=== PATIENT | female | born 1995 | race Two or more races ===

== ENCOUNTER → 2024-03-09 | Outpatient (CLI) | payer MEDICAID, SELFPAY ==
--- NOTE | 2024-03-09 15:30 | XR_ITS ---
Examination: Complete OB ultrasound, less than 14 weeks, transabdominal Date and time of exam: March 09, 2024 1600 hours INDICATIONS: Diagnosis amenorrhea Technique: Obstetrical ultrasound images less than 14 weeks performed via transabdominal imaging Findings: A normal shaped single intrauterine gestation is present in the uterus. pole 2.1 cm corresponds to 8 weeks 5 day gestational age Cardiac motion 167 BPM Ultrasonographic survey of visible and placental structures unremarkable. Amniotic fluid volume appears appropriate for this estimated gestational age. Right ovary 2.8 x 1.7 x 2.6 cm arterial flow 13 mm follicular cyst Left ovary 10.6 x 7.8 x 9.4 cm arterial flow, 9.0 x 6.8 x 8.5 cm simple cyst IMPRESSION: Viable intrauterine gestation 8 weeks 5 days Large simple left ovarian cyst 9.0 x 6.8 x 8.5 cm.
== END | disposition home or self-care (01) ==
PROVIDERS: PCP Physician Assistant
DX: N91.2 Amenorrhea, unspecified (principal)
CPT/HCPCS: 76801

== ENCOUNTER 2024-06-20 13:10 | Outpatient (RCR) | payer MEDICAID, SELFPAY | END 2024-07-07 23:59 | disposition home or self-care (01) | LOC: SCTC 13:10 | PROVIDERS: PCP Physician Assistant; Referring Provider Physician Assistant; Visit Provider Nurse Practitioner Family | DX: O26.892 Other specified pregnancy related conditions, second trimester (principal); R22.1 Localized swelling, mass and lump, neck; R53.83 Other fatigue; Z3A.22 22 weeks gestation of pregnancy | CPT/HCPCS: 99213; G0463 ==

== ENCOUNTER → 2024-07-31 | Outpatient (CLI) | payer MEDICAID, SELFPAY ==
--- NOTE | 2024-07-31 13:30 | XR_ITS ---
Examination: Thyroid sonography complete TECHNIQUE: Grayscale sonographic images thyroid lobes INDICATIONS: Diagnosis and deficiency anemia FINDINGS: Right thyroid 4.3 cm No solid nodules Left thyroid 4.1 cm No solid nodules IMPRESSION: Negative study
== END | disposition home or self-care (01) ==
LOC: CDIM 13:32
PROVIDERS: PCP Family Medicine; Referring Provider Nurse Practitioner Family; Visit Provider Nurse Practitioner Family
DX: D50.9 Iron deficiency anemia, unspecified (principal)
CPT/HCPCS: 76536

== ENCOUNTER 2024-08-01 13:17 | Outpatient (RCR) | payer MEDICAID, SELFPAY | END 2024-08-06 23:59 | disposition home or self-care (01) | LOC: SCTC 13:17 | PROVIDERS: PCP Physician Assistant; Referring Provider Nurse Practitioner Family; Visit Provider Nurse Practitioner Family | DX: O99.013 Anemia complicating pregnancy, third trimester (principal); D64.9 Anemia, unspecified; Z3A.30 30 weeks gestation of pregnancy | CPT/HCPCS: 99212; G0463 ==

== ENCOUNTER 2024-08-13 10:28 | Outpatient (AMB) | payer MEDICAID, SELFPAY ==
[2024-08-13 10:46] VITALS: BP 105/71; PULSE 93; RESP 17; TEMP 36.5; O2SAT 979; BMI 27.9
--- NOTE | 2024-08-13 10:46 | OBCLNT_ITS ---
Vital Signs 08/13/24 10:46 Height 1.7 m Height Method Measured Weight 80.91 kg Weight Measurement Method Standing Scale BMI 27.9 BP 105/71 Blood Pressure Source Automatic Cuff Blood Pressure Location Right Upper Arm Position Sitting Respiration 17 Pulse 93 Pulse Source Monitor Temp 97.7 F Temp Source Temporal Artery Scan Pulse Oximetry (%) 979 H Oxygen Delivery Method Room Air Allergies/Home Meds Allergies & Medications Allergies No Known Allergies Allergy (Verified 08/13/24 10:47) Medication Reconciliation prenat.vits,cinthia,[id number] ( Vitamin tablet) 1 tab PO QDAY 11/05/17 [History Confirmed 08/13/24] Intake Visit Data Collection New Patient or Established: New Patient not seen in past 3 years at [facility] (considered New) Reason for Visit:: OB TRANSFER Consent obtained for Telemed Visit: No Seen by Clinical Staff ONLY (RN/MA): No Admissions Supervisor Required: Yes Do You Feel Safe at Home: Yes Authorities Contacted: N/A PCP or OBGYN visit in last 3 months: Yes Hx Now: Yes Are you currently on any form of Control: No Pain Present Currently: No Pain Scale Used: Garcia-Hogan/Numerical Pain scale:: 0 Smoking Status Smoking Status: Never smoker Questionnaires Covid-19 Vaccine Questionnaire Has patient been vacinated for Covid-19 Have you been vacinated for Covid-19: Yes PHQ-9 PHQ-2 Over the last 2 weeks, how often have you been bothered by any of the following problems? 1. Little interest or pleasure in doing things: not at all 2. Feeling down, depressed, or hopeless: not at all Total score: 0 PHQ-9 3. Trouble falling or staying asleep, or sleeping too much: Not at all 4. Feeling tired or having little energy: Not at all 5. Poor appetite or overeating: Not at all 6. Feeling bad about yourself - or that you are a failure or have let yourself or your family down: Not at all 7. Trouble concentrating on things, such as reading the newspaper or watching television: Not at all 8. Moving or speaking so slowly that other people could have noticed? - Or the opposite - being so fidgety or restless that you have been moving around a lot more than usual: not at all 9. Thoughts that you would be better off or of hurting yourself in some way: Not at all Total score: 0 If you checked off any problems, how difficult have these problems made it for you to do your work, take care of things at home, or get along with other people?: not difficult at all Source: Developed by Drs. Deniz Boston, Susan Kunz, Ashish Johnson and colleagues, with an educational na from [email or web address]. 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 Patient has a history of prior delivery. No contractions, LOF, VB and reports good FM. Denies MONROY, VC, and epigastric pain. - Fransisca Balderas is a 29-year-old female, , at 33 weeks and 1 day gestation, presenting for transfer of care from Dr. Grider at [facility]. 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 Medical History Past Medical History: No Hx Neurological Disorders, No Hx Breast Cancer, No Hx Cardiac Disorders, No Hx Blood Disorders, No Hx Gastrointestinal Disorders, No Hx Renal Disease, No Hx Diabetes Mellitus Type 1, No Hx Diabetes Mellitus Type 2, No Hx Tubal Ligation and No Hx Hysterectomy OB Initial Visit OB Flowsheet OB Flowsheet Initial Weight: Not Recorded Date -?-?-?-?-?-?-?-?-?-?-?-?- EGA Weight BP Alb Glu CTX Pres Fundal ht FHR Mov Dilation Station Effacement Hx Notes Visit Note 08/13/24 -?-?-?-?-?-?-?-?-?-?-?-?- 33w 1d 80.91 kg 105/71 absent cephalic 38 155 active 33w1d, no CTX/LOF/VB, good FM. Triple X syndrome, hx of 4 prior C/S, and incomplete miscarriage. panel WNL. Signed consent for TL. FHR 155. Plan: follow up in 2 wks, collect paperwork and [facility] report, finalize C/S date and plan for C/S with TL. Menstrual History Menstrual reliability: definite Flow: heavy Menstrual regularity: regular Monthly: Yes On control pills at conception: No Date of positive home test: 02/13/24 OB History : 6 Para: 4 Hx # Pregnancies: 0 Hx Total # of Abortions (Spontaneous & Elective): 1 # of Living Children: 4 Delivery History 1st : Child's name: ANA date: 01/10/13 sex: male Delivery type: weight (lbs): 3628.739 g History of depression before or after : No 2nd : Child's name: CHARITO date: 10/11/14 sex: female Delivery type: weight (lbs): 3175.147 g History of depression before or after : No 3rd : Child's name: PHUC date: 03/13/16 sex: male Delivery type: weight (lbs): 3175.147 g History of depression before or after : No 4th : Child's name: ODELL date: 11/11/17 sex: female Delivery type: weight (lbs): 3175.147 g History of depression before or after : No Infection History & Risk Evaluation History of STDs: none HIV risk evaluation: low risk Hepatitis B risk evaluation: low risk Patient or partner has history of Genital Herpes: No Genetic Screening & History Genetic Screening/Teratology Counseling - Includes patient, baby's father, or anyone in either family with: 1. Patient's age 35 years or older as of estimated date of delivery: No 2. Thalassemia (Mongolian, Luxembourger, Mediterranean, or Background); MCV less than 80: No 3. Neural Tube Defect (Meningomyelocele, Spina Bifida, or Anencephaly): No 4. Congenital Heart Defect: No 5. Down Syndrome: No 6. Rakesh-Sachs (Ashkenazi Protestant, Cajun, Kyrgyz Samoan): No 7. Viola Disease (Ashkenazi Protestant): No 8. Familial Dysautonomia (Ashkenazi Protestant): No 9. Sickle Cell Disease or Trait (): No 10. Hemophilia or other blood disorders: No 11. Muscular Dystrophy: No 12. Cystic Fibrosis: No 13. Willacy's Chorea: No 14. Mental Retardation/Autism: No 15. Other inherited genetic or chromosomal disorder: No 16. Maternal Metabolic Disorder (EG,TYPE 1 Diabetes, PKU): No 17. Patient or baby's father had a child with defects not listed above: No 18. Recurrent loss or a stillbirth: No 19. Medications (including supplements, vitamins, herbs or otc drugs)/illicit/recreational drugs/alcohol since last menstrual period: No 20. Any other: No Infection History 1. Live with someone with TB or exposed to TB: No 2. Rash or viral illness since last menstrual period: No 3. Hepatitis B,C: No Other (see comments) Source: [employer] Exam General General Appearance: alert, in no apparent distress and healthy appearing Head Head exam: atraumatic Neck Neck exam: Present normal inspection and trachea midline Chest Chest inspection: Present normal inspection and symmetric chest wall rise External exam: Present normal external exam; Absent tenderness Neuro Neurological exam: Present oriented X3 Psych Psychiatric exam: Present normal affect and normal mood Office Procedures OB Clinic LOC & Office Proc's Nursing/Assessment Patient Status: Initial/New Patient OB Clinic Nursing Assessment: Medication Reconciliation, Update PMH in EMR and Vital Signs OB Clinic Coordination of Care: Complex Care and Chronic Disease 1-5, Consent,records obtained, informed consent, Education Simp Pt/Fam, Lab and Imaging orders and Staff clarify orders Special Needs: Heart tones New Patient Charge New Patient Point Assignment: [id number] New Patient Point Charge: TELEVISION WRITER Level 4 (6457-1785) Assessment & Plan Diagnosis / Problem List (1) Supervision of high risk , unspecified, third trimester: Status: Acute (2) Maternal care for low transverse scar from previous delivery: Status: Acute Plan Problem List - , 33 weeks and 1 day - Triple X syndrome - History of section - History of incomplete miscarriage Assessment at 33 weeks 1 day gestation with TIERNEY 09/30/2024 based on LMP 12/25/2023, confirmed by 23-week ultrasound. Current significant for positive triple X syndrome. She has a history of previous and incomplete miscarriage with D&C in 2022. panel within normal limits. heart rate 155 bpm, noted as normal. She has signed sterilization consent for tubal ligation with planned fifth . Plan - Schedule follow-up appointment in 2 weeks - Collect all necessary paperwork by next appointment - Obtain [facility] report - Finalize date - Proceed with planned and tubal ligation 1. Progress Reviewed gestational age (33 weeks and 1 day), growth, and heart rate (155 bpm). Planned frequent visits (every 2 weeks until 36 weeks, then weekly). 2. Instructed the patient to monitor movements and report decreases immediately. 3. Testing Counseled on routine third-trimester labs per guidelines. Discussed potential need for ultrasound or monitoring based on risk factors. 4. Preeclampsia Precaution Educated on preeclampsia signs: severe headache, vision changes, right upper quadrant pain, sudden swelling. Advised urgent reporting of symptoms and discussed blood pressure monitoring if high risk. 5. Labor Precautions Reviewed labor signs: regular contractions, pelvic pressure, back pain, bleeding, or fluid leakage. Instructed to seek immediate care for these symptoms. 6. Lifestyle and Delivery Preparation Reinforced vitamins, nutrition, and safe activity. Discussed plan, pain management, and . Advised on labor preparation (e.g., hospital bag) and expectations. 7. Psychosocial Support Assessed her emotional well-being and offered resources for mental health or parenting support.
== END 2024-08-13 11:01 | disposition home or self-care (01) ==
LOC: HODSOBC 10:28
PROVIDERS: Supervising Provider Obstetrics & Gynecology; Visit Provider Obstetrics & Gynecology
DX: O09.293 Supervision of pregnancy with other poor reproductive or obstetric history, third trimester (principal); O34.211 Maternal care for low transverse scar from previous cesarean delivery; Z3A.33 33 weeks gestation of pregnancy; Z87.59 Personal history of other complications of pregnancy, childbirth and the puerperium; O35.19X0 Maternal care for (suspected) chromosomal abnormality in fetus, other chromosomal abnormality, not applicable or unspecified; Q97.0 Karyotype 47, XXX
CPT/HCPCS: 99204; G0463

== ENCOUNTER 2024-08-24 14:00 | Outpatient (AMB) | payer MEDICAID, SELFPAY ==
--- NOTE | 2024-08-24 14:21 | AMB.OBVISIT ---
Vital Signs 08/24/24 14:22 Height 1.7 m Height Method Stated Weight 82.214 kg Weight Measurement Method Standing Scale BMI 28.4 BP 97/67 Blood Pressure Source Automatic Cuff Blood Pressure Location Right Upper Arm Position Sitting Respiration 17 Pulse 90 Pulse Source Monitor Temp 97.9 F Temp Source Temporal Artery Scan Pulse Oximetry (%) 97 Oxygen Delivery Method Room Air Allergies/Home Meds Allergies & Medications Allergies No Known Allergies Allergy (Verified 08/24/24 14:22) Medication Reconciliation prenat.vits,cinthia,[id number] ( Vitamin tablet) 1 tab PO QDAY 11/05/17 [History Confirmed 08/24/24] Intake Visit Data Collection New Patient or Established: Established Patient (seen at [facility] within 3 years) Reason for Visit:: OBC 34W5D Seen by Clinical Staff ONLY (RN/MA): No Assistant Professor Of Spanish Required: Yes Assistant Professor Of Spanish's name/title: NATALIA DICK Do You Feel Safe at Home: Yes Authorities Contacted: N/A PCP or OBGYN visit in last 3 months: Yes Date of Last PCP or OBGYN visit: 08/13/24 Hx Now: Yes Are you currently on any form of Control: No Pain Present Currently: No Pain Scale Used: Garcia-Hogan/Numerical Pain scale:: 0 Smoking Status Smoking Status: Never smoker Questionnaires Covid-19 Vaccine Questionnaire Has patient been vacinated for Covid-19 Have you been vacinated for Covid-19: No PHQ-9 PHQ-2 Over the last 2 weeks, how often have you been bothered by any of the following problems? 1. Little interest or pleasure in doing things: not at all 2. Feeling down, depressed, or hopeless: not at all Total score: 0 PHQ-9 3. Trouble falling or staying asleep, or sleeping too much: Not at all 4. Feeling tired or having little energy: Not at all 5. Poor appetite or overeating: Not at all 6. Feeling bad about yourself - or that you are a failure or have let yourself or your family down: Not at all 7. Trouble concentrating on things, such as reading the newspaper or watching television: Not at all 8. Moving or speaking so slowly that other people could have noticed? - Or the opposite - being so fidgety or restless that you have been moving around a lot more than usual: not at all 9. Thoughts that you would be better off or of hurting yourself in some way: Not at all Total score: 0 If you checked off any problems, how difficult have these problems made it for you to do your work, take care of things at home, or get along with other people?: not difficult at all Source: Developed by Drs. Deniz Boston, Susan Kunz, Ashish Johnson and colleagues, with an educational na from [employer]. 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 Triple X syndrome, hx of 4 prior C/S, and incomplete miscarriage. panel WNL. Signed consent for TL. FHR 155. Plan: follow up in 2 wks, collect paperwork and [facility] report, finalize C/S date and plan for C/S with TL. 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 FHR 172 bpm, reassuring. 08/16 U/S shows appropriate growth and no structural anomalies. Patient reassured regarding generally favorable prognosis for Triple X. Plan: routine care; follow up in 2 weeks. No requirement for delivery at tertiary center. TIERNEY Calculator Estimated Delivery Date Method Current WG Current Estimate 09/30/24 LMP (Certain) 34w 5d Other Estimates 10/07/24 Ultrasound #1 33w 5d Office Procedures OB Clinic LOC & Office Proc's Nursing/Assessment Patient Status: Established Patient OB Clinic Nursing Assessment: Medication Reconciliation, Update PMH in EMR and Vital Signs OB Clinic Coordination of Care: Complex Care and Chronic Disease 1-5, Consent,records obtained, informed consent, Education Simp Pt/Fam and Staff clarify orders Special Needs: Heart tones Established Patient Charge Established Patient Point Assignment: 115 Established Patient Point Charge: EP Level 3 (80-115) Assessment & Plan Diagnosis / Problem List (1) Pre-existing type 2 diabetes mellitus treated with oral hypoglycemic therapy during : Status: Acute (2) Maternal care for low transverse scar from previous delivery: Status: Acute (3) Supervision of high risk , unspecified, third trimester: Status: Acute
[2024-08-24 14:22] VITALS: BP 97/67; PULSE 90; RESP 17; TEMP 36.6; O2SAT 97; BMI 28.4
== END 2024-08-24 14:30 | disposition home or self-care (01) ==
LOC: HODSOBC 14:00
PROVIDERS: PCP Physician Assistant; Referring Provider Physician Assistant; Supervising Provider Obstetrics & Gynecology; Visit Provider Obstetrics & Gynecology
DX: O09.293 Supervision of pregnancy with other poor reproductive or obstetric history, third trimester (principal); O34.211 Maternal care for low transverse scar from previous cesarean delivery; O09.893 Supervision of other high risk pregnancies, third trimester; O24.113 Pre-existing type 2 diabetes mellitus, in pregnancy, third trimester; O35.19X0 Maternal care for (suspected) chromosomal abnormality in fetus, other chromosomal abnormality, not applicable or unspecified; Z79.84 Long term (current) use of oral hypoglycemic drugs; Z3A.34 34 weeks gestation of pregnancy
CPT/HCPCS: 99213; G0463

== ENCOUNTER 2024-09-10 11:02 | Outpatient (AMB) | payer MEDICAID, SELFPAY ==
--- NOTE | 2024-09-10 11:09 | OBCLNT_ITS ---
Vital Signs 09/10/24 11:14 Height 1.7 m Height Method Stated Weight 83.178 kg Weight Measurement Method Standing Scale BMI 28.8 BP 106/72 Blood Pressure Source Automatic Cuff Blood Pressure Location Left Upper Arm Position Sitting Respiration 18 Pulse 88 Pulse Source Monitor Temp 97.8 F Temp Source Oral Pulse Oximetry (%) 98 Oxygen Delivery Method Room Air Allergies/Home Meds Allergies & Medications Allergies No Known Allergies Allergy (Verified 10/03/24 08:32) Medication Reconciliation prenat.vits,cinthia,[id number] ( Vitamin tablet) 1 tab PO QDAY 11/05/17 [History Confirmed 10/03/24] docusate sodium 100 mg capsule 100 mg PO QDAY #60 caps 09/19/24 [Rx Confirmed 10/03/24] hydrocodone 5 mg-acetaminophen 325 mg tablet 2 tab PO Q6HR PRN Patient rated pain 9 to 10 #30 tabs 09/19/24 [Rx Confirmed 10/03/24] ibuprofen 400 mg tablet 800 mg (2 x 400 mg) PO Q8HR PRN Pain Scale 4-6 (Moderate #30 tabs 09/19/24 [Rx Confirmed 10/03/24] Intake Visit Data Collection New Patient or Established: Established Patient (seen at [facility] within 3 years) Reason for Visit:: CARE Seen by Clinical Staff ONLY (RN/MA): No Health Consultant Required: Yes Health Consultant's name/title: NATALIADRA TURCIOSZ Do You Feel Safe at Home: Yes Authorities Contacted: N/A PCP or OBGYN visit in last 3 months: Yes Hx Now: Yes Are you currently on any form of Control: No Pain Present Currently: No Pain Scale Used: Garcia-Hogan/Numerical Pain scale:: 0 Smoking Status Smoking Status: Never smoker Questionnaires Covid-19 Vaccine Questionnaire Has patient been vacinated for Covid-19 Have you been vacinated for Covid-19: No PHQ-9 PHQ-2 Over the last 2 weeks, how often have you been bothered by any of the following problems? 1. Little interest or pleasure in doing things: not at all 2. Feeling down, depressed, or hopeless: not at all Total score: 0 PHQ-9 3. Trouble falling or staying asleep, or sleeping too much: Not at all 4. Feeling tired or having little energy: Not at all 5. Poor appetite or overeating: Not at all 6. Feeling bad about yourself - or that you are a failure or have let yourself or your family down: Not at all 7. Trouble concentrating on things, such as reading the newspaper or watching television: Not at all 8. Moving or speaking so slowly that other people could have noticed? - Or the opposite - being so fidgety or restless that you have been moving around a lot more than usual: not at all 9. Thoughts that you would be better off or of hurting yourself in some w ay: Not at all Total score: 0 Source: Developed by Drs. Deniz Boston, Susan Kunz, Ashish Johnson and colleagues, with an educational na from [email or web address]. 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 Triple X syndrome, hx of 4 prior C/S, and incomplete miscarriage. panel WNL. Signed consent for TL. FHR 155. Plan: follow up in 2 wks, collect paperwork and [facility] report, finalize C/S date and plan for C/S with TL. 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 FHR 172 bpm, reassuring. /10 U/S shows appropriate growth and no structural anomalies. Patient reassured regarding generally favorable prognosis for Triple X. Plan: routine care; follow up in 2 weeks. No requirement for delivery at tertiary center. 09/10/24 -?-?-?-?-?-?-?-?-?-?-?-?- 37w 1d 83.178 kg 106/72 absent cephalic 40 145 active - Patient reports the baby is active. - No specific complaints or concerns men tioned by the patient. - Routine Group B Streptococcus (GBS) cu lture swab performed during this visit. - Planned section in 2 weeks. - Routine culture swab performed - Next appointment scheduled for one jesse k from now (last appointment before C- section) - scheduled for September 24 TIERNEY Calculator Estimated Delivery Date Method Current WG Current Estimate 09/30/24 LMP (Certain) 44w 0d Other Estimates 10/07/24 Ultrasound #1 43w 0d Office Procedures OB Clinic LOC & Office Proc's Nursing/Assessment Patient Status: Established Patient OB Clinic Nursing Assessment: Medication Reconciliation, Update PMH in EMR and Vital Signs OB Clinic Coordination of Care: Complex Care and Chronic Disease 1-5, Consent,records obtained, informed consent, Education Simp Pt/Fam, Lab and Imaging orders, Results/Orders obtained and Staff clarify orders Special Needs: Heart tones Miscellaneous Interventions: Culture Specimen Collection Established Patient Charge Established Patient Point Assignment: 150 Established Patient Point Charge: EP Level 4 (120-155) Assessment & Plan Diagnosis / Problem List (1) Maternal care for low transverse scar from previous delivery: Status: Inactive Plan - Routine culture swab performed - Next appointment scheduled for one week from now (last appointment before C- section) - scheduled for September 24, 2024
[2024-09-10 11:14] VITALS: BP 106/72; PULSE 88; RESP 18; TEMP 36.6; O2SAT 98; BMI 28.8
== END 2024-09-10 11:55 | disposition home or self-care (01) ==
LOC: HODSOBC 11:02
PROVIDERS: Supervising Provider Obstetrics & Gynecology; Visit Provider Obstetrics & Gynecology
DX: O09.293 Supervision of pregnancy with other poor reproductive or obstetric history, third trimester (principal); O34.211 Maternal care for low transverse scar from previous cesarean delivery; Z3A.37 37 weeks gestation of pregnancy; Z36.85 Encounter for antenatal screening for Streptococcus B
CPT/HCPCS: 99214; G0463

== ENCOUNTER 2024-09-12 11:37 | Outpatient (RCR) | payer MEDICAID, SELFPAY | END 2024-10-07 23:59 | disposition home or self-care (01) | LOC: SCTC 11:37 | PROVIDERS: PCP Physician Assistant; Referring Provider Physician Assistant; Visit Provider Nurse Practitioner Family | DX: O99.013 Anemia complicating pregnancy, third trimester (principal); D50.9 Iron deficiency anemia, unspecified; O99.113 Other diseases of the blood and blood-forming organs and certain disorders involving the immune mechanism complicating pregnancy, third trimester; D69.6 Thrombocytopenia, unspecified; Z3A.36 36 weeks gestation of pregnancy | CPT/HCPCS: 99212; G0463 ==

== ENCOUNTER 2024-09-17 07:43 | Outpatient (RCR) | payer MEDICAID, SELFPAY ==
--- NOTE | 2024-09-13 15:17 | XR_ITS ---
Examination: Biophysical profile, ultrasound Date and time of exam: September 13, 2024 1546 hours INDICATIONS: Diagnosis diabetes Technique: Multiple transabdominal sonographic images of the pelvis abdomen obtained. Attention is directed to the breathing movement, gross body movement, amniotic fluid volume and tone. Findings: Amniotic fluid index 11.9 cm Total biophysical profile is 8 of 8. breathing movement is 2. Gross body movement is 2. tone is 2. Qualitative amniotic fluid volume is 2 Impression: Biophysical profile is 8 of 8.
[2024-09-13 16:14] VITALS: BP 98/57; PULSE 89; RESP 16; TEMP 36.9
--- NOTE | 2024-09-17 08:07 | XR_ITS ---
Examination: Biophysical profile, ultrasound Date and time of exam: September 17, 2024 0832 hours INDICATIONS: Diagnosis pre-existing diabetes Technique: Multiple transabdominal sonographic images of the pelvis abdomen obtained. Attention is directed to the breathing movement, gross body movement, amniotic fluid volume and tone. Findings: Amniotic fluid index 18.6 cm Total biophysical profile is 8 of 8. breathing movement is 2. Gross body movement is 2. tone is 2. Qualitative amniotic fluid volume is 2 Impression: Biophysical profile is 8 of 8.
[2024-09-17 08:50] VITALS: BP 96/55; PULSE 106; RESP 16; TEMP 36.7
== END 2024-09-17 23:59 | disposition home or self-care (01) ==
LOC: S4S1 07:43
PROVIDERS: Referring Provider Obstetrics & Gynecology; Visit Provider Obstetrics & Gynecology
DX: O24.113 Pre-existing type 2 diabetes mellitus, in pregnancy, third trimester (principal); E11.9 Type 2 diabetes mellitus without complications; O34.211 Maternal care for low transverse scar from previous cesarean delivery; O09.93 Supervision of high risk pregnancy, unspecified, third trimester; Z3A.38 38 weeks gestation of pregnancy; Z79.84 Long term (current) use of oral hypoglycemic drugs
CPT/HCPCS: 59025; 76819

== ENCOUNTER 2024-09-17 13:30 | Inpatient (IN) | payer MEDICAID, SELFPAY ==
[2024-09-17] VITALS (12 sets, daily range): BP systolic 103–133; BP diastolic 56–84; PULSE 61–93; RESP 15–20; TEMP 36.4–36.7; O2SAT 97–100; BMI 25.5
[2024-09-17 14:39] LABS: Basophils # (Auto) 0.0 Thou/mm3 (0.0-0.2); Basophils % (Auto) 0 % (0-2.5); Eosinophils # (Auto) 0.0 Thou/mm3 (0.0-0.5); Eosinophils % (Auto) 0 % (0-10); Hematocrit 33.1 % (36.0-46.0); Hemoglobin 10.6 g/dL (12.0-16.0); Immature Granulocytes Auto 0.08 Thou/mm3 (0.00-0.00); Lymphocytes # (Auto) 2.1 Thou/mm3 (1.0-4.8); Lymphocytes % (Auto) 26 % (10-50); Mean Corpuscular HGB Conc 32.0 g/dl (31.0-37.0); Mean Corpuscular Hemoglobin 30.2 pg (25.0-35.0); Mean Corpuscular Volume 94 fL (80-100); Monocytes # (Auto) 0.5 Thou/mm3 (0.0-0.8); Monocytes % (Auto) 6 % (0-12); Neutrophils # (Auto) 5.3 Thou/mm3 (1.8-7.7); Neutrophils % (Auto) 67 % (37-80); Nucleated Red Blood Cell # 0.00 Thou/mm3 (0.00-0.00); Nucleated Red Blood Cell % 0 /100 WBC (0); Platelet Count 172 Thou/mm3 (140-440); RDW Standard Deviation 47.2 fL (36.4-46.3); Red Blood Count 3.51 Miln/mm3 (4.00-5.20); White Blood Count 7.9 Thou/mm3 (3.6-11.0)
[2024-09-17 15:29] LABS: Syphilis Nonreactive (Nonreactive)
[2024-09-17] MEDS: ceFAZolin/D5W 2 GM IV 2 GM/100 ML BAG IV (17:02)
[2024-09-17] MEDS: METOCLOPRAMIDE INJ 5 MG/ML VIAL 2 ML 10 MG IVP (17:02)
[2024-09-17] MEDS: FAMOTIDINE INJ 10 MG/ML VIAL 2 ML 20 MG IV (17:02)
--- NOTE | 2024-09-17 17:06 | PC.NURSE ---
account analyst sp Andrew cornejo
[2024-09-17] MEDS: RINGERS LACTATED 1000 ML 1,000 ML 100 ML IV (17:30)
[2024-09-17] MEDS: OXYTOCIN in NS 20 units 20 UNIT/1,000 ML BAG 125 UNIT IV (19:30)
--- NOTE | 2024-09-17 20:46 | ESHP_ITS ---
Documentation for date of: 09/17/24 OB Labor/Induct. HPI History of Present Illness Chief complaint: Nonstress test, contractions : 6 Para: 4 Term pregnancies: 3 pregnancies: 0 Living children: 4 History of Abortions: Spontaneous and Elective: 1 History of sections: Yes History of : No TIERNEY: 09/30/24 Gestational Age (weeks): 38 Gestational Age (days): 1 History of present illness: The patient is a 29-year-old -0-1-4 history of x 4 in the past who was transferred at about 30 weeks to our clinic from Dr. Grider. Patient has a history of a tubal ligation with her fourth C section with Hulka clips. Patient states she desires tubal ligation as this is now her sixth . After the attempted tubal, she also had a miscarriage and a D&C. Patient is 100% sure she does not want any more children. While she was being evaluated with her nonstress test for possible gestational diabetes, some contractions were noted in one subtle deceleration to about 100 for 4 minutes with slow return to baseline was noted. As patient was over 38 weeks with prior x 4 and a history of questionable gestational diabetes based on a 1 hour glucose of 143, she was consented for repeat low-transverse section with tubal ligation. Of note the baby has an XXX chromosome content. Allegedly she was worked up at [facility]. Per Dr. Novoa's notes, the [facility] stated there should be no reason to deliver at a tertiary care center. We have no records from [facility] on the computer. History of Present Dating criteria: LMP confirmed by 2nd trimester US Adequate Care: Yes Ultrasounds: normal mid trimester US Obstetrical complications: gestational diabetes (Questionable gestational diabetes. I only see a 1 hour glucose of 143. I did not see any 3-hour glucose and Dr Grider notes.) and other (Prior x 4) Narrative: Baby with XXX chromosome content Labs Maternal Blood Type: A Pos Labs: Positive: Rubella Titre, Negative: RPR, Hepatitis B, HIV, Chlamydia, Gonorrhea and Covid-19 and Unknown: Herpes Type 1, Herpes Type 2 and Group Beta Strep Past Medical History Surgical History SURGICAL: Positive Section Meds Home Medications and Allergies Home Medications ?Medication ?Instructions ?Recorded ?Confirmed ?Type prenat.vits,cinthia,xto-ogak-coooa 1 tab PO QDAY 11/05/17 09/10/24 History ( Vitamin tablet) Allergies Allergy/AdvReac Type Severity Reaction Status Date / Time No Known Allergies Allergy Verified 09/10/24 11:15 OB Exam Physical Exam Vital signs: Temp Pulse Resp BP Pulse Ox O2 Del Method 98.0 F 66 15 112/76 99 Room Air 09/17/24 20:30 09/17/24 20:30 09/17/24 20:30 09/17/24 20:30 09/17/24 20:30 09/17/24 20:30 Narrative: Patient is alert and oriented x 3 in no apparent distress. She is Japanese- speaking only and all consents are completed with a Japanese speaking language interpreter present. Constitutional Constitutional: no acute distress Routine Cardiovascular Exam Cardiovascular: Present RRR Routine Abdominal Exam Abdominal: Present soft and normoactive bowel sounds Detailed Labor and Delivery Exam monitor accelerations: 15x15 monitor decelerations: Prolonged (Run prolonged decel to about 100 for 4 minutes with return to baseline) ferry terminal agent variability: Moderate (11-25) Contraction frequency (min): Irregular Contraction intensity: Mild Routine Extremities Exam Extremities: Present full ROM Routine Skin Exam Skin: Present intact, dry and warm Routine Psychiatric Exam Psychiatric: Present normal affect and normal thought process OB Results Labs 09/17/24 14:17 Labs: Short CBC 09/17/24 Range/Units 14:17 WBC 7.9 (3.6-11.0) Thou/mm3 Hgb 10.6 L (12.0-16.0) g/dL Hct 33.1 L (36.0-46.0) % Plt Count 172 (140-440) Thou/mm3 OB Assessment & Plan Assessment and Plan (1) Maternal care for low transverse scar from previous delivery: Status: Acute Assessment and plan: Patient is status post x 4 she is consented for repeat #5. She is 38 and 1 sevenths weeks. The risks of the procedure were discussed with patient in detail with her significant other at bedside including the risk of bleeding, infection, blood transfusion, damage to bowel, bladder, blood vessels, other organs. Prolonged hospital stay and further surgery should any above occur. Patient also under stands the risk of tubal ligation including the failure rate of 1%. All questions were answered all consents were signed (2) Supervision of high risk , unspecified, third trimester: Status: Acute (3) Grand multiparity with current : Status: Acute Assessment and plan: Patient has signed tubal ligation papers in the office at Dr. Blair. We have them on the chart. Patient desires a permanent sterilization in form of bilateral near-total salpingectomies. The procedure was discussed the patient and her significant other in detail and patient agrees. (4) Family history of breast cancer in mother: Status: Acute Assessment and plan: Per notes in the computer, patient's mother of breast cancer in her early 50s. She has 2 other aunts with breast cancer. I am unsure from the notes whether patient has been offered BRCA1 BRCA2 testing. This needs to be done in the office after discharge. Additional Plan Additional Plan Comment: For repeat section with bilateral salpingectomies now. (3) Grand multiparity with current Qualifiers: Trimester: third trimester Qualified Code(s): O09.43 - Supervision of with grand multiparity, third trimester
--- NOTE | 2024-09-17 20:59 | PD.GYNPROC ---
Operative Note - DIESEL ENGINE INSPECTOR Procedure Date of procedure: 09/17/24 Procedure Performed: Repeat low-transverse section with near-total bilateral salpingectomies Indication: The patient is a 29-year-old -0-1-4 past obstetrical history is significant for x 4. She presented for nonstress today nonstress test today and was found to be shekhar irregularly. She did have 1 deceleration that was prolonged to about 100 bpm for about 4 minutes before return to baseline. As patient was over 38 weeks with prior x 4 and some irregular contractions, she was consented for repeat low-transverse section. Of note, with her forth in 2017, she had a tubal ligation performed with Hulka clamps. The patient then had a miscarriage in 2022 followed by this current . She does desire permanent sterilization and was consented in Dr. Vega's office for a bilateral salpingectomy. Pre-Op diagnosis: 1. Intrauterine at 38 and 1 sevenths weeks 2. Previous x 4 3. Previous attempted tubal ligation with Hulka clamps 4. Irregular contractions with one deceleration on NST 5. Multiparity, desires permanent sterilization 6. Baby with XXX chromosomes Post-Op diagnosis: Same Anesthesia type: Spinal Procedure description: After obtaining informed consent for both a repeat and bilateral salpingectomies, the patient was brought back to the operating room, and spinal anesthesia was administered. She was then prepped and draped in the dorsal supine position with a leftward tilt in a normal sterile fashion. A Wilkinson catheter was inserted in the patient's bladder. Patient was given 2 g of Fatemeh Ancef by anesthesia. A Pfannenstiel skin incision was made through the patient's prior scar and the prior scar removed. The incision was carried down to the underlying fascia. The fascia was incised midline, and the fascial incision extended laterally using Alonzo scissors. The superior aspect of the fascia was grasped with Lois clamps and the underlying rectus muscles were dissected off using blunt and sharp dissection. This was repeated in the inferior aspect the incision. The rectus muscle or separate the midline the peritoneum was picked up and entered sharply with a scalpel. This was extended superiorly and inferiorly good visualization of the bladder. The bladder blade was inserted and the lower uterine segment noted be quite thin. A lower uterine segment was made with the scalpel higher on the patient's uterus in order to have some type of lower uterine segment to close. The uterine incision was extended laterally using blunt dissection with the surgeon's fingers. The bag nolasco ruptured and clear fluid was noted. The bladder blade was removed and the infant was delivered atraumatically. The cord was clamped and cut after waiting approximately a minute. The baby was vigorous. The baby was handed off to the waiting pediatric staff. Cord blood and cord gases were sent. The placenta was then manually removed, and the uterus was exteriorized and cleared of all clots and debris. The uterine incision was repaired using 0 Monocryl in a running locked fashion. As the uterus was a little boggy, Methergine 0.2 mg was given IM to the patient. The uterus was returned to the patient's abdominal cavity and copious irrigation carried out with warm normal saline. The uterine incision was noted to be hemostatic. After surveying the pelvis, both fallopian tubes were noted to be normal in caliber with a Filshe clamp attached to the serosa of the left fallopian tube. The other Filshie clip could not be identified. The patient consented again for her tubal ligation. The uterus was tilted while in situ and the fallopian tube on the left side identified and followed out to the fimbriated end. The tube was elevated using 2 Yeaddiss's clamps and 2 free ties of 0 plain plain were used to ligate the fallopian tube from the fimbria all the way to the cornual region. The intervening tubal segment was transected and handed off the operating field. An near total portion of the left fallopian tube was handed off the operating field. The tubal transection site was noted hemostatic. Of note the Filshe clamp was handed off the operating table with the left fallopian tube. The same procedure was repeated with the right fallopian tube which was identified, followed out to its fimbriated end,and elevated with 2 Jam clamps. The intervening tubal segment was ligated using 2 free ties of 0 plain and transected in a similar fashion. A near total portion of that fallopian tube was handed off the operating field including all the fimbria. The tubal transection site was noted to be hemostatic. No Filshe clamp was seen on the right side. The pelvis was then copiously irrigated 1 more time. Both tubal transection sites were noted to be hemostatic. The uterine incision was noted to be hemostatic. After ensuring the rectus muscles were hemostatic, these were reapproximated in the midline using a running suture of 0 Monocryl. The fascia was closed with 0 Vicryl in a running fashion. The subcutaneous tissues were irrigated found to be hemostatic, these were reapproximated using running suture of 2-0 plain. The skin was closed with a subcuticular suture of 4-0 Monocryl. The patient tolerated the procedure well. Sponge, lap, instrument, and needle counts were correct x 2. The patient went to the recovery area awake and in stable condition. Pathology was near-total portions of bilateral fallopian tubes. Of note the baby went to the NICU for observation secondary to low oxygen saturations after . Fluids: crystalloid Fluid amount (mL): 3,000 Urine output (mL): 400 Specimen: left tube and right tube Implants: None Estimated blood loss (ml): 400 Findings: Liveborn female in the OA presentation with a loose nuchal cord x 1 no meconium .Apgars were 3, 5, and 7. Weight was 2290 g or approximately 6 pounds 10 ounces. Of note at the baby was crying and the cord was clamped at about 1 minute of life. The baby was kicking and moving all extremities at that time. The baby was then handed off to the pediatric staff which included a RN and a respiratory therapist. The uterus was normal. There was a Filshe clamp barely attached to the left fallopian tube in the serosa , otherwise a normal left fallopian tube was seen. The right fallopian tube was also normal with no Filshe clamp seen. Both ovaries were normal. There was very little scar tissue present in the patient's abdomen. The lower uterine segment is extremely thin with a window present. Also of note blood gases were drawn in the baby and are normal. pH umbilical artery 7.26 with a base excess of -2.8 pH umbilical vein 7.33 with a base excess of -2.9 Complications: none Surgical staff Operation Date: 09/17/24 17:15 Case Staff Anesthesiologist: Pankaj Lakhani RN First Assistant: Vipul Verduzco Diagnosis Discharge Diagnosis (1) Family history of breast cancer in mother: Status: Acute (2) Grand multiparity with current : Status: Acute (3) Supervision of high risk , unspecified, third trimester: Status: Acute (4) Maternal care for low transverse scar from previous delivery: Status: Acute Problem List Completed Was Problem List Reviewed/Reconciled?: Yes (2) Grand multiparity with current Qualifiers: Trimester: third trimester Qualified Code(s): O09.43 - Supervision of with grand multiparity, third trimester
--- NOTE | 2024-09-17 21:11 | OBDSUM_ITS ---
Data (Gutierrez) Data Hx Section: Yes Maternal Blood Type: A Pos Rubella Titre: Positive RPR: Non-reactive Labs: Negative: RPR, Hepatitis B, HIV, Chlamydia, Gonorrhea and Group Beta Strep : 6 Term: 4 : 0 Livin Abortions: Spontaneous & Theraputic: 1 Delivery Data (Gutierrez) Labor Data Induction/Augmentation Agent: None ROM date: 09/17/24 ROM time: 18:00 Amniotic membrane rupture type: Artificial Amniotic fluid description: Clear Delivery Data EDC: 09/30/24 EDC calculated by:: LMP/early US confirmation Date of arrival to unit: 09/17/24 Onset of labor date: 09/17/24 Onset of labor time: 18:00 Complete dilation date: 09/17/24 Complete dilation time: 18:00 delivery date: 09/17/24 delivery time: 18:01 Gestational age (weeks): 38 Gestational age (days): 1 Placenta delivery date: 09/17/24 Placenta delivery time: 18:02 Stage 1 total time: Labor - Stage 1 Duration 0 minutes Delivered by: Savi Middleton ([facility]) Delivery nurse: GERARDO Haile nurse: ALETHEA Senior Telecommunications Engineer at delivery: No Support person(s) at delivery: FOB Other staff at delivery: SEE JOCELYN TRACKER Delivery Method Delivery method: Low Transverse Presentation: Vertex position: OA Anesthesia Type Anesthesia Type: None Anesthesia type: Spinal Delivery Room Medications Delivery room medications: Methergine 0.2 mg IM and Pitocin 20 u IV Placenta Placenta delivery description: Manual Removal Cord blood sent to lab: Yes cord blood collection: Cord Blood Type, Arterial Cord Blood Gas and Venous Cord Blood Gas Episiotomy Episiotomy description: None EBL Estimated blood loss (ml): 400 Umbilical Cord cord description: 3 Vessels, Nuchal Cord and Loose Additional Procedures See op report for further details Complications Complications: None Data (Gutierrez) Data order: 1 [place]'s gender: Female Identification band number: [id number] weight (gms): 2990 g Weight (pounds): 6 lbs and 9.5 ozs length: 50.8 cm 1 minute: 3 5 minutes: 5 10 minutes: 7 Additional Comments Additional comments: Blood gases were drawn and the baby and her normal pH umbilical artery 7.26, base excess -2.8. pH umbilical vein 7.33 with base excess of -2.9.
[2024-09-18 00:15] VITALS: BP 100/65; PULSE 79; RESP 17; TEMP 36.7; O2SAT 98
[2024-09-18] MEDS: KETOROLAC INJ 30 MG/ML VIAL IVP ×4 (00:41→17:47)
[2024-09-18 03:50] VITALS: BP 101/66; PULSE 80; RESP 15; TEMP 37.1; O2SAT 97
[2024-09-18] MEDS: OXYTOCIN in NS 20 units 20 UNIT/1,000 ML BAG 125 UNIT IV (04:03)
[2024-09-18 06:30] LABS: Basophils # (Auto) 0.0 Thou/mm3 (0.0-0.2); Basophils % (Auto) 0 % (0-2.5); Eosinophils # (Auto) 0.0 Thou/mm3 (0.0-0.5); Eosinophils % (Auto) 0 % (0-10); Hematocrit 30.3 % (36.0-46.0); Hemoglobin 9.6 g/dL (12.0-16.0); Immature Granulocytes Auto 0.04 Thou/mm3 (0.00-0.00); Lymphocytes # (Auto) 1.3 Thou/mm3 (1.0-4.8); Lymphocytes % (Auto) 21 % (10-50); Mean Corpuscular HGB Conc 31.7 g/dl (31.0-37.0); Mean Corpuscular Hemoglobin 30.0 pg (25.0-35.0); Mean Corpuscular Volume 95 fL (80-100); Monocytes # (Auto) 0.5 Thou/mm3 (0.0-0.8); Monocytes % (Auto) 8 % (0-12); Neutrophils # (Auto) 4.5 Thou/mm3 (1.8-7.7); Neutrophils % (Auto) 70 % (37-80); Nucleated Red Blood Cell # 0.00 Thou/mm3 (0.00-0.00); Nucleated Red Blood Cell % 0 /100 WBC (0); Platelet Count 134 Thou/mm3 (140-440); RDW Standard Deviation 47.2 fL (36.4-46.3); Red Blood Count 3.20 Miln/mm3 (4.00-5.20); White Blood Count 6.5 Thou/mm3 (3.6-11.0)
[2024-09-18 08:00] VITALS: BP 108/65; PULSE 82; RESP 16; TEMP 36.8; O2SAT 99
[2024-09-18] MEDS: DOCUSATE SOD 100 MG CAPSULE PO (09:35)
[2024-09-18] MEDS: SIMETHICONE 80 MG CHEW PO (09:35)
--- NOTE | 2024-09-18 11:07 | ESPR_ITS ---
Subjective Subjective Interval history: Delivery type: Patient doing well this morning. No acute complaints. Ambulating, tolerating p.o. and voiding without difficulty. HTN/Pre-Eclampsia screen: No chest pain, shortness of breath, headache, visual changes, epigastric or right upper quadrant pain. Breast-feeding, lochia diminishing. Bowel: Flatus+ Exam Vital Signs Temp Pulse Resp BP Pulse Ox O2 Del Method 98.2 F 82 16 108/65 99 Room Air 09/18/24 08:00 09/18/24 08:00 09/18/24 08:00 09/18/24 08:00 09/18/24 08:00 09/18/24 08:00 Constitutional Constitutional: no acute distress Routine HEENT Exam Head: Present normocephalic and atraumatic Eye: Present EOMI and PERRL ENT: Present mucous membranes moist Routine Neck Exam Neck: Present supple and trachea midline Routine Respiratory Exam Respiratory: Present chest non-tender, lungs clear, normal breath sounds and no resp distress Routine Cardiovascular Exam Cardiovascular: Present RRR Routine Abdominal Exam Abdominal: Present soft and normoactive bowel sounds Routine Extremities Exam Extremities: Present full ROM Routine Skin Exam Skin: Present intact, dry and warm Routine Neurological Exam Neurological: Present alert, oriented X3 and CN II-XII intact Routine Psychiatric Exam Psychiatric: Present normal affect and normal thought process Objective Labs 09/18/24 05:23 Labs: Laboratory Results - last 24 hr 09/17/24 09/18/24 14:17 05:23 WBC 7.9 6.5 RBC 3.51 L 3.20 L Hgb 10.6 L 9.6 L Hct 33.1 L 30.3 L MCV 94 95 MCH 30.2 30.0 MCHC 32.0 31.7 RDW Std Deviation 47.2 H 47.2 H Plt Count 172 134 L D Neut % (Auto) 67 70 Lymph % (Auto) 26 21 [place] % (Auto) 6 8 Eos % (Auto) 0 0 Baso % (Auto) 0 0 Neut # (Auto) 5.3 4.5 Lymph # (Auto) 2.1 1.3 [place] # (Auto) 0.5 0.5 Eos # (Auto) 0.0 0.0 Baso # (Auto) 0.0 0.0 Immature Gran # (Auto) 0.08 H 0.04 H Absolute Nucleated RBC 0.00 0.00 Immature Gran % 1 H 1 H Nucleated RBC % 0 0 Syphilis Serology Nonreactive Blood Type A Positive Antibody Screen NEGATIVE Blood Bank Wristband ID Yes Assessment & Plan Problem List (1) Family history of breast cancer in mother: Status: Acute (2) Grand multiparity with current : Status: Acute (3) Supervision of high risk , unspecified, third trimester: Status: Acute (4) Maternal care for low transverse scar from previous delivery: Status: Acute (5) delivery delivered: Status: Acute Assessment and plan: 1. Continue routine /post-op care 2. Labs reviewed, cbc appropriate 3. Remove dressing/Wilkinson 4. Encourage to ambulate, shower 5. Encourage PO intake, breast feeding Time Spent With Patient Time: Total time spent is greater than 50% in coordination of care (as documented) at patient's floor/unit and/or counseling patient:
[2024-09-18 12:00] VITALS: BP 108/70; PULSE 88; RESP 16; TEMP 36.7; O2SAT 99
--- NOTE | 2024-09-18 14:50 | PC.NURSE ---
Cleared by Alexandrea from social sciences lecturer
[2024-09-18 15:41] VITALS: BP 104/69; PULSE 86; RESP 17; TEMP 36.8; O2SAT 97
--- NOTE | 2024-09-18 17:49 | PC.CC ---
Pt is a 29 yo female who delivered the infant at 38 weeks, 1 day via . ASW informed pt of the reason for the referral, as it was reported by the assigned RN that mother had h/o alcohol use. Pt reported confirmed she had h/o alcohol use, but denied it being during her and stated she drank beer every now and then, prior to her but denied it being a problem. Pt reported that she would drink beer at social events and family parties, but never to the point where she became intoxicated or where she could not handle herself. Pt stated she is a mother of now 5 children and alcohol use is not something that she is able to involve in her life as she is busy. ASW provided community resources to the pt, such as [facility], talked about the potential of post depression and provided resources to Mental health agencies. Pt understood and accepted the resources. Pt reported she received consistent care with Dr. Calzada at the [facility] and the infants Peds will be a provider at [facility]. Pt reports she receives food stamps in the amount of $700, [place] in the amount of [place]600 and received WIC as well as medi-cinthia. Pt reports the FOB is involved and named Eugenio Gomes. Pt reported she that during the , the aspirated and that is the reason why the was in the NICU. However, the pt reported the is no longer in the NICU and at bedside with the pt. At this time, SS does not have any concerns with the mother or infant. No CWS report is necessary as mother did not report alcohol use during her .
[2024-09-18 20:00] VITALS: BP 103/68; PULSE 89; RESP 18; TEMP 36.8; O2SAT 96
[2024-09-19 04:35] VITALS: BP 107/74; PULSE 99; RESP 16; TEMP 36.8; O2SAT 96
[2024-09-19 07:22] VITALS: BP 99/66; PULSE 86; RESP 16; TEMP 37.1; O2SAT 98
--- NOTE | 2024-09-19 07:44 | PD.LDPPPRG ---
Subjective Subjective Interval history: Pt is a 29 y/o POD #2 Repeat CS with BTL. Doing well. NO complaints. Wants to go home. Exam Vital Signs Temp Pulse Resp BP Pulse Ox O2 Del Method 98.8 F 86 16 99/66 98 Room Air 09/19/24 07:22 09/19/24 07:22 09/19/24 07:22 09/19/24 07:22 09/19/24 07:22 09/19/24 07:22 Narrative Exam Fundus firm, NT Incision C/D/I No C/C/E Objective Labs 09/18/24 05:23 Assessment & Plan Problem List (1) Family history of breast cancer in mother: Problem details: Patient will need BRCA1 BRCA2 testing as outpatient Status: Acute (2) Grand multiparity with current : Problem details: Status post tubal ligation Status: Acute (3) Supervision of high risk , unspecified, third trimester: Status: Acute (4) Maternal care for low transverse scar from previous delivery: Problem details: Doing well. Discharge home postoperative day #2 instructions given. Status: Acute (5) delivery delivered: Problem details: Doing well post op day #2. Instructions given. Status: Acute Time Spent With Patient Time: Total time spent is greater than 50% in coordination of care (as documented) at patient's floor/unit and/or counseling patient: Time with patient: less than 15 minutes
--- NOTE | 2024-09-19 07:48 | ESDS_ITS ---
DS: Providers Provider Date of admission: 09/17/24 13:30 Primary care physician: Physician No Primary/Family Admitting Provider: Savi Middleton [facility] ([facility]) Attending Provider on Admission: Julian Novoa MD Consults: 09/17/24 19:16 Referral Routine Comment: Attending Provider on DC: Savi Middleton MD ([facility]) Discharging Provider: Savi Middleton MD ([facility]) Anticipated date of discharge: 09/19/24 DS: Diagnosis Discharge Diagnosis (1) delivery delivered: Status: Acute Assessment & Plan: Discharge home postop day #2 in stable condition. Discharge instructions given. (2) Family history of breast cancer in mother: Status: Acute Assessment & Plan: Patient needs testing for BRCA1 BRCA2 and she will follow-up with this with Dr. Gongora in the office. (3) Grand multiparity with current : Status: Acute Assessment & Plan: Patient status post near-total bilateral salpingectomies Problem List Completed Was Problem List Reviewed/Reconciled?: Yes Summary/Hosp Course Brief History: The patient is a 29-year-old -0-1-4 history of x 4 in the past who was transferred at about 30 weeks to our clinic from Dr. Grider. Patient has a history of a tubal ligation with her fourth C section with Hulka clips. Patient states she desires tubal ligation as this is now her sixth . After the attempted tubal, she also had a miscarriage and a D&C. Patient is 100% sure she does not want any more children. While she was being evaluated with her nonstress test for possible gestational diabetes, some contractions were noted in one subtle deceleration to about 100 for 4 minutes with slow return to baseline was noted. As patient was over 38 weeks with prior x 4 and a history of questionable gestational diabetes based on a 1 hour glucose of 143, she was consented for repeat low-transverse section with tubal ligation. Of note the baby has an XXX chromosome content. Allegedly she was worked up at [facility]. Per Dr. Novoa's notes, the MFM stated there should be no reason to deliver at a tertiary care center. We have no records from [facility] on the computer. Please see history and physical for further details. Hospital course: Patient was admitted, she underwent a repeat low-transverse section #5 with bilateral salpingectomies. Intraoperative blood loss was 400. Surgery was uncomplicated. See op report for further details. Her postoperative course was uncomplicated. By postoperative day #2, the patient was voiding, ambulating, tolerating a general diet and passing flatus. She is breast and bottlefeeding. Her pain is controlled with oral pain medication and her bleeding is minimal. Predelivery hemoglobin 10.6 postdelivery hemoglobin 9.6. Oral iron along with vitamins encouraged. Patient will be discharged home postoperative day #2 in stable condition. She will follow-up with Dr. Vázquez in the office in 1 to 2 weeks. Of note she is [place] African-speaking only and the whole interview and physical exam is conducted with an RN at bedside. Peripartum Data Delivery Method: Low Transverse Episiotomy Description: None Procedures: Procedures Operation Date: 09/17/24 17:15 Actual Procedure Side Surgeon p w/tubal OB Savi Middleton ([facility])MD complications: none Status at Discharge Cognitive/behavioral status at discharge: Alert and oriented x 3 in no apparent distress. I like anything Functional status at discharge: independent ambulation Overall status at discharge: patient is progressing back to baseline Time Spent with Patient Time attestation: Total time spent providing and/or coordinating discharge services: Time spent: Less than 30 minutes Specific discharge activities: Pelvic Rest x 6 weeks Exam Vital Signs Temp Pulse Resp BP Pulse Ox O2 Del Method 98.8 F 86 16 99/66 98 Room Air 09/19/24 07:22 09/19/24 07:22 09/19/24 07:22 09/19/24 07:22 09/19/24 07:22 09/19/24 07:22 Narrative Exam Alert and oriented x 3 in no apparent distress Fundus firm nontender Fundus at umbilicus Incision clean dry and intact Extremities show no cyanosis clubbing or edema Discharge Plan Plan Patient Disposition: HOME (Self Care) Disposition Comment: Stable Patient condition on transfer: Stable Prescriptions/Referrals Prescriptions/Med Rec: New hydrocodone-acetaminophen 5-325 mg Tablet 2 tab PO Q6HR MDD 6 PRN (Reason: Patient rated pain 9 to 10) Qty: 20 0RF ibuprofen 400 mg Tablet 800 mg PO Q8HR PRN (Reason: Pain Scale 4-6 (Moderate) Qty: 30 0RF docusate sodium 100 mg Capsule 100 mg PO QDAY Qty: 60 0RF No Action prenat.vits,cinthia,[id number] [ Vitamin] Tablet 1 tab PO QDAY Referrals: No Primary/Family,Physician [Primary Care Provider] - Patient/Caregiver Discharge Instructions Discharge Activity: activity as tolerated Other Discharge Activity Instructions:: No heavy lifting intercourse tampons douching x 6 weeks no exercise x 6 weeks follow-up with Dr. Vázquez in 1 to 2 weeks Other Discharge Diet Instructions: General Diet Education Materials: C Section Dc Print Language: South African Stand Alone Forms: Mary Award Info., Patient Portal Info Letter Discharge Order Discharge Orders: Discharge (Routine); Ordered 09/19/24 Ordered By: Savi Middleton ([facility]) Planned Discharge Date 09/19/24 (3) Grand multiparity with current Qualifiers: Trimester: third trimester Qualified Code(s): O09.43 - Supervision of with grand multiparity, third trimester
[2024-09-19] MEDS: DOCUSATE SOD 100 MG CAPSULE PO (07:59)
[2024-09-19] MEDS: HYDROcodone/APAP 5/325 TABLET 1 TAB PO (13:09)
== END 2024-09-19 14:35 | disposition home or self-care (01) | DRG 539 ==
LOC: S4SX 13:58 → S4NX 17:52
PROVIDERS: Admitting Provider Obstetrics & Gynecology; Visit Provider Obstetrics & Gynecology
PROC: 0UL70ZZ Occlusion of Bilateral Fallopian Tubes, Open Approach (ICD-10-PCS; CPT 59514; principal; 2024-09-17 17:00)
DX: O34.211 Maternal care for low transverse scar from previous cesarean delivery (principal); O69.81X0 Labor and delivery complicated by cord around neck, without compression, not applicable or unspecified; Z30.2 Encounter for sterilization; Z37.0 Single live birth; Z3A.38 38 weeks gestation of pregnancy
CPT/HCPCS: 36415; 85025; 86780; 86850; 86900; 86901; A4314; A4649; J0689; J1885; J2210; J2274; J2371; J2590; J2765; J3010; J3490; J7120; A9270; J2270

== ENCOUNTER 2024-10-03 08:20 | Outpatient (AMB) | payer MEDICAID, SELFPAY ==
[2024-10-03 08:31] VITALS: BP 103/72; PULSE 93; RESP 16; TEMP 36.2; O2SAT 97
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
== END 2024-10-03 09:06 | disposition home or self-care (01) ==
LOC: HODSOBC 08:20
PROVIDERS: Supervising Provider Obstetrics & Gynecology; Visit Provider Obstetrics & Gynecology
DX: Z39.2 Encounter for routine postpartum follow-up (principal); Z39.1 Encounter for care and examination of lactating mother
CPT/HCPCS: 59430

== ENCOUNTER 2024-11-10 19:14 | Emergency (ER) | payer MEDICAID, SELFPAY ==
[2024-11-10 19:19] VITALS: BMI 23.8
[2024-11-10 19:20] VITALS: BP 111/77; PULSE 122; RESP 19; TEMP 37.2; O2SAT 99
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
== END 2024-11-10 19:51 ==
PROVIDERS: Emergency Provider Emergency Medicine
DX: Z02.89 Encounter for other administrative examinations (principal); Z04.1 Encounter for examination and observation following transport accident; Z65.3 Problems related to other legal circumstances
CPT/HCPCS: 99281

== ENCOUNTER 2024-11-12 09:21 | Outpatient (AMB) | payer MEDICAID, SELFPAY ==
[2024-11-12 09:31] VITALS: BP 106/73; PULSE 68; RESP 17; TEMP 36.7; O2SAT 97; BMI 28.1
--- NOTE | 2024-11-12 09:31 | AMBOBPPN_ITS ---
Vital Signs 11/12/24 09:31 Height 1.57 m Height Method Stated Weight 69.4 kg Weight Measurement Method Standing Scale BMI 28.1 BP 106/73 Blood Pressure Source Automatic Cuff Blood Pressure Location Right Upper Arm Position Sitting Respiration 17 Pulse 68 Pulse Source Monitor Temp 98.0 F Temp Source Temporal Artery Scan Pulse Oximetry (%) 97 Oxygen Delivery Method Room Air Allergies/Home Meds Allergies & Medications Allergies No Known Allergies Allergy (Verified 11/12/24 09:32) Medication Reconciliation prenat.vits,cinthia,dkv-ynzj-wksma ( Vitamin tablet) 1 tab PO QDAY 11/05/17 [History Confirmed 11/12/24] docusate sodium 100 mg capsule 100 mg PO QDAY #60 caps 09/19/24 [Rx Confirmed 11/12/24] hydrocodone 5 mg-acetaminophen 325 mg tablet 2 tab PO Q6HR PRN Patient rated pain 9 to 10 #30 tabs 09/19/24 [Rx Confirmed 11/12/24] ibuprofen 400 mg tablet 800 mg (2 x 400 mg) PO Q8HR PRN Pain Scale 4-6 (Moderate #30 tabs 09/19/24 [Rx Confirmed 11/12/24] Intake Visit Data Collection New Patient or Established: Established Patient (seen at [facility] within 3 years) Reason for Visit:: Seen by Clinical Staff ONLY (RN/MA): No Supplier Relationship Director Required: Yes Supplier Relationship Director's name/title: NATALIA DICK MA Do You Feel Safe at Home: Yes Authorities Contacted: N/A PCP or OBGYN visit in last 3 months: Yes Date of Last PCP or OBGYN visit: 11/10/24 Hx Now: No Are you currently on any form of Control: No Last menstrual period: 11/09/24 Pain Present Currently: No Pain Scale Used: Garcia-Hogan/Numerical Pain scale:: 0 Smoking Status 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 Past Medical History: No Hx Neurological Disorders, No Hx Breast Cancer, No Hx Cardiac Disorders, No Hx Blood Disorders, No Hx Gastrointestinal Disorders, No Hx Renal Disease, No Hx Diabetes Mellitus Type 1, No Hx Diabetes Mellitus Type 2, No Hx Tubal Ligation and No Hx Hysterectomy Questionnaires Covid-19 Vaccine Questionnaire Has patient been vacinated for Covid-19 Have you been vacinated for Covid-19: No Social History Living Situation History Marital Status: Lives With: Family Housing: House Tobacco History Smoking Status: Never smoker Second Hand Smoke Exposure: No Alcohol History Alcohol Intake: Never Domestic Abuse History Do You Feel Safe at Home: Yes EPDS - PP Depression Screening Pateros Pospartum Depression Screen I have been able to laugh and see the funny side of things: (0) As much as I always could I have looked forward with enjoyment to things: (0) As much as I ever did I have blamed myself unnecessarily when things went wrong: (0) No, never I have been anxious or worried for no good reason: (0) No, not at all I have felt scared or panicky for no very good reason: (0) No, not at all Things have been getting on top of me: (0) No, I have been coping as well as ever I have been so unhappy that I have had difficulty sleeping: (0) No, not at all I have felt sad or miserable: (0) No, not at all I have been so unhappy that I have been crying: (0) No, never The thought of harming myself has occurred to me: (0) Never EPDS completed yes Care OB Visit Log OB Flowsheet Initial Weight: Not Recorded Date -?-?-?-?-?-?-?-?-?-?-?-?- EGA Weight BP Alb Glu CTX Pres Fundal ht FHR Mov Dilation Station Effacement Hx Notes Visit Note 08/13/24 -?-?-?-?-?-?-?-?-?-?-?-?- 33w 1d 80.91 kg 105/71 absent cephalic 38 155 active 33w1d, no CTX/LOF/VB, good FM. Triple X syndrome, hx of 4 prior C/S, and incomplete miscarriage. panel WNL. Signed consent for TL. FHR 155. Plan: follow up in 2 wks, collect paperwork and [facility] report, finalize C/S date and plan for C/S with TL. 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 FHR 172 bpm, reassuring. 7/10 U/S shows appropriate growth and no structural anomalies. Patient reassured regarding generally favorable prognosis for Triple X. Plan: routine care; follow up in 2 weeks. No requirement for delivery at tertiary center. 09/10/24 -?-?-?-?-?-?-?-?-?-?-?-?- 37w 1d 83.178 kg 106/72 absent cephalic 40 145 active - Patient reports the baby is active. - No specific complaints or concerns men tioned by the patient. - Routine Group B Streptococcus (GBS) cu lture swab performed during this visit. - Planned section in 2 weeks. - Routine culture swab performed - Next appointment scheduled for one jesse muir from now (last appointment before C- section) - scheduled for September 24 TIERNEY Calculator Estimated Delivery Date Method Current WG Current Estimate 09/30/24 LMP (Certain) 48w 1d Other Estimates 10/07/24 Ultrasound #1 47w 1d HPI Interval History: Fransisca Balderas presents for follow-up after delivering via on September 17, 2024. The patient reports that she is doing well and that her baby is good. She states that she feels all healed up from the and denies any current issues or complications. The patient's has been diagnosed with triple X syndrome. She has a history of one prior delivery on September 17, 2024. The patient was originally referred by Dr. Grider for her obstetric care and is now being cleared to return to his care for any future needs. When asked about control, Ms. Balderas declined any contraceptive options at this time. She is a 29-year-old female with an obstetric history of G1 T1 L1. 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 Exam General General Appearance: alert, in no apparent distress and healthy appearing Head Head exam: atraumatic Neck Neck exam: Present normal inspection and trachea midline Chest Chest inspection: Present normal inspection and symmetric chest wall rise External exam: Present normal external exam; Absent tenderness Neuro Neurological exam: Present oriented X3 Psych Psychiatric exam: Present normal affect and normal mood Office Procedures OBC Clinic LOC & Office Proc's Nursing/Assessment Patient Status: Established Patient OB Clinic Nursing Assessment: Medication Reconciliation, Update PMH in EMR and Vital Signs OB Clinic Coordination of Care: Complex Care and Chronic Disease 1-5, Education Complex Pt/Fam, Consent,records obtained, informed consent and Staff clarify orders Established Patient Charge Established Patient Point Assignment: 90 Established Patient Point Charge: EP Level 3 (80-115) Antepartum Initial or Follow-up Antepartum Initial Visit: Yes Assessment & Plan Diagnosis / Problem List (1) delivery delivered: Status: Acute Plan status post : - 29-year-old female presenting for follow-up after delivery on September 17, 2024. - Patient reports no issues and appears to be healing well. Plan: - Clear patient to return to referring physician (Dr. Grider) for further care.
== END 2024-11-12 10:12 | disposition home or self-care (01) ==
LOC: HODSOBC 09:21
PROVIDERS: Supervising Provider Obstetrics & Gynecology; Visit Provider Obstetrics & Gynecology
DX: Z39.2 Encounter for routine postpartum follow-up (principal)
CPT/HCPCS: 59425; 99213; G0463